=== PATIENT | female | born 1995 | race Caucasian/White ===

== ENCOUNTER 2025-06-24 22:10 | Emergency (ER) | payer MEDICAID ==
[~2025-06-24] VITALS: Ht 157.5 cm; Wt 79.2 kg
[2025-06-24 22:36] VITALS: TEMP 37.7; O2SAT 99
[2025-06-24 23:32] LABS: CLARITY URINE CLEAR (CLEAR); COLOR URINE YELLOW (YELLOW); GLUCOSE URINE NEGATIVE (NEGATIVE); KETONES URINE 1+ (NEGATIVE); LEUKOCYTE ESTERASE URINE NEGATIVE (NEGATIVE); NITRITE URINE NEGATIVE (NEGATIVE); OCCULT BLOOD URINE NEGATIVE (NEGATIVE); PH URINE 6.0 (4.5-8.0); PROTEIN URINE NEGATIVE (NEGATIVE); SPECIFIC GRAVITY URINE 1.017 (1.005-1.030); UROBILINOGEN URINE 0.2 E.U./dL (0.2-1.0)
[2025-06-24 23:38] LABS: BASOPHILS % 0.4 % (0.0-2.0); EOSINOPHILS % 0.1 % (0.0-5.0); HEMATOCRIT. 37.6 % (36.0-48.0); HEMOGLOBIN. 12.6 g/dL (12.0-16.0); LYMPHOCYTES % 11.2 % (20.0-50.0); MEAN PLATELET VOLUME 7.9 fl (7.4-10.4); MONOCYTES % 4.6 % (2.0-8.0); NEUTROPHILS % 83.7 % (40.0-76.0); PLATELET 334 x1000/uL (130-400); RED BLOOD CELL COUNT 4.52 mill/uL (4.2-5.4); RED CELL DISTRIBUTION WIDTH 13.7 % (11.6-14.6)
[2025-06-24] MEDS: ONDANSETRON HCL 4MG/2ML INJ IV ONE (23:45)
[2025-06-24] MEDS: KETOROLAC 15MG/ML VIAL IV ONE (23:46)
[2025-06-24] MEDS: SODIUM CHLORIDE 0.9% 1,000 ML IV ONE (23:46)
[2025-06-24 23:48] LABS: *AMPHETAMINES SCREEN URINE NEGATIVE (NEGATIVE); *BARBITURATES SCREEN URINE NEGATIVE (NEGATIVE); *BENZODIAZEPINES SCREEN URINE NEGATIVE (NEGATIVE); *COCAINE SCREEN URINE NEGATIVE (NEGATIVE); CANNABINOID URINE SCREEN NEGATIVE (NEGATIVE); ECSTASY MDMA SCREEN URINE NEGATIVE (NEGATIVE); METHADONE URINE SCREEN NEGATIVE (NEGATIVE); OPIATES URINE SCREEN NEGATIVE (NEGATIVE); PHENCYCLIDINE URINE SCREEN NEGATIVE (NEGATIVE)
[2025-06-24 23:48] LABS: INR 0.9
[2025-06-24 23:51] LABS: HCG SCREEN NEGATIVE
[2025-06-24 23:53] LABS: CREATININE 0.7 mg/dL (0.6-1.0); UREA NITROGEN BLOOD 13 mg/dL (9-23)
[2025-06-24 23:54] LABS: ETHANOL BLOOD < 10 mg/dL (<10)
[2025-06-24 23:55] LABS: ASPARTATE AMINOTRANSFERASE 15 IU/L (<34); BILIRUBIN DIRECT 0.2 mg/dL (<=3.0)
[2025-06-24 23:56] LABS: BILIRUBIN TOTAL 0.6 mg/dL (0.1-1.0); PROTEIN TOTAL 7.9 g/dL (6.0-8.3)
[2025-06-25] MEDS: POTASSIUM CHLORIDE 20MEQ TABLET SR PO NR (00:29)
[2025-06-25] MEDS ORDERED: SODIUM CHLORIDE 0.9% 1,000 ML IV ONE (01:45)
[2025-06-25] MEDS ORDERED: METRONIDAZOLE 500 MG PREMIX 100 ML IV ONE (01:45)
[2025-06-25] MEDS: CEFTRIAXONE 1GM/50ML 50 ML IV ONE (02:27)
[2025-06-25 02:37] VITALS: BP 140/82; PULSE 72; RESP 17; O2SAT 100
== END 2025-06-25 03:05 | disposition short-term general hospital (02) ==
LOC: ER 22:10 → EDBEDREQ 06-25 01:53 → ENRESERV 06-25 02:12 → ER 06-25 03:05
DX: K35.80 Unspecified acute appendicitis (principal); G40.909 Epilepsy, unspecified, not intractable, without status epilepticus; Z88.0 Allergy status to penicillin
CPT/HCPCS: 80076; 80305; 80048; 81003; 81025; 80320; 84703; 83690; 85025; 85610; 36415; 74176; 76705; 93005; 96361; 96375; 99285; 96365; J1885; J2405; J7030 ×2; J0696; G0480